=== PATIENT | male | born 2000 | race Caucasian/White ===

== ENCOUNTER 2025-02-13 14:13 | Emergency (ER) | payer BC ==
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
--- NOTE | 2025-02-13 14:33 | ER ---
Nurse's Notes [facility] Name: Carlos Reeder Age: 24 yrs Sex: Male : 2000 Arrival Date: 02/13/2025 Time: 14:13 Bed 13 Private MD: Diagnosis: Cellulitis of left lower limb;Bitten by tick Presentation: 02/13 14:26 Chief complaint: Removed tick from LLE 2 weeks ago, area remains red and swollen, had hb flu symptoms over the weekend, concerned it is related to the tick bite. Coronavirus screen: At this time, the client does not indicate any symptoms associated with coronavirus-19. Ebola Screen: No symptoms or risks identified at this time. Initial Sepsis Screen: Does the patient meet any 2 criteria? No. Patient's initial sepsis screen is negative. Does the patient have a suspected source of infection? No. Patient's initial sepsis screen is negative. Risk Assessment: Do you want to hurt yourself or someone else? Patient reports no desire to harm self or others. Onset of symptoms was January 30, 2025. 14:26 Method Of Arrival: Ambulatory 14:26 Acuity: MONICA 4 hb Triage Assessment: 14:30 General: Appears in no apparent distress. Behavior is appropriate for age. Pain: bp Complains of pain in left medial ankle. EENT: No deficits noted. Neuro: No deficits noted. Cardiovascular: No deficits noted. Respiratory: No deficits noted. GI: No signs and/or symptoms were reported involving the gastrointestinal system. : No signs and/or symptoms were reported regarding the genitourinary system. Derm: Wound noted left medial ankle. Musculoskeletal: No deficits noted. Historical: - Allergies: 14:27 No Known Allergies; hb - Home Meds: 14:27 None [Active]; hb - PMHx: 14:27 None; hb - PSHx: 14:27 None; hb - Immunization history:: Adult Immunizations up to date. - Infectious Disease History:: Denies. - Social history:: Smoking status: Patient denies any tobacco usage or history of. Screenin:30 [facility] ED Fall Risk Assessment (Adult) History of falling in the last 3 months, bp including since admission No falls in past 3 months (0 pts) Confusion or Disorientation No (0 pts) Intoxicated or Sedated No (0 pts) Impaired Gait No (0 pts) Mobility Assist Device Used No (0 pt) Altered Elimination No (0 pt) Score/Fall Risk Level 0 - 2 = Low Risk Oriented to surroundings. Abuse screen: Denies threats or abuse. Denies injuries from another. Nutritional screening: No deficits noted. Tuberculosis screening: No symptoms or risk factors identified. Assessment: 14:30 General: SEE TRIAGE NOTE. bp Vital Signs: 14:26 BP 128 / 91; Pulse 80; Resp 16; Temp 98.4; Pulse Ox 100% on R/A; Pain 1/10; hb 14:26 Pain Scale: Adult hb ED Course: 14:16 Patient arrived in ED. im 14:16 [facility] Hernandez [facility] sb[facility] 14:16 Aric Khanna MD is Attending Physician. sb4 14:22 Scotty Pinto, RN is Primary Nurse. bp 14:27 Triage completed. hb 14:30 Arm band placed on. bp 14:30 Patient has correct armband on for positive identification. bp 15:15 No provider procedures requiring assistance completed. Patient did not have IV access bp during this emergency room visit. Wound care: to cellulitis located on left medial ankle was dressed with Neosporin, Patient tolerated well. Administered Medications: No medications were administered Medication: 14:30 VIS not applicable for this client. bp Outcome: 14:32 Discharge ordered by . sb4 15:15 Discharged to home ambulatory, with family, bp 15:15 Condition: stable 15:15 Discharge instructions given to patient, Instructed on discharge instructions, follow up and referral plans. medication usage, wound care, Demonstrated understanding of instructions, follow-up care, medications, wound care, Prescriptions given X 1, 15:16 Patient left the ED. bp Signatures: Mariam Camara, RN RN Scotty Pinto, RN RN bp Jennifer Hernandez PA-C PA-C sb4 Renae Fields im
[2025-02-13 15:21] VITALS: BP 128/91; TEMP 98.4; O2SAT 100
== END 2025-02-13 15:16 | disposition home or self-care (01) ==
LOC: ER 14:13
DX: L03.116 Cellulitis of left lower limb (principal); W57.XXXA Bitten or stung by nonvenomous insect and other nonvenomous arthropods, initial encounter
CPT/HCPCS: 99283